=== PATIENT | female | born 1970 | race Caucasian/White ===

== ENCOUNTER 2017-05-27 08:58 | Emergency (ER) | payer OTHER ==
[~2017-05-27] VITALS: Ht 175.3 cm; Wt 111.0 kg
[~2017-05-27 08:58] MED LIST: LEVOFLOXACIN 750 MG TAB PO SCH
[2017-05-27 09:06] VITALS: TEMP 37; Ht 175.3 cm; Wt 111.0 kg
[2017-05-27] MEDS ORDERED: SODIUM CHLORIDE 0.9% 1000ML 1,000 ML IV STA (09:24)
--- NOTE | 2017-05-27 09:24 | EMERGENCY ROOM VISIT NOTE ---
History Report prepared by Emilyiberin: Ruby Mcmanus Under the Supervision of: Dr. Herman Wood D.O. First contact with patient: 09:17 Chief Complaint: ILLNESS History of Present Illness The patient is a 47 year old female who presents to the Emergency Room with complaints of dizziness. The patient is from the [place] area but is currently in [place] working. 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 The patient states that this morning she was in the shower when she started feeling shaky and dizzy. She denies any vertigo symptoms but states that she felt dizzy and lightheaded. She states she had some near syncope but mostly she noted that she was shaking in both upper extremities and felt weak in both upper extremity's. The patient denies having any headaches. She did not have any nausea or vomiting. She has not had any recent illnesses. She denies having any chest pain. The patient had surgery in October of this year for tetralogy of flow. She is not currently taking anticoagulants. The patient states that she's been compliant with her medications but left her beta pippa as well as [facility] and [place] by accident and has not taken his medications for 2 days. She's not had a fever. She denies any frequency or dysuria but states she's noticed decreased urine output. The patient states her symptoms are improved at this time. She arrived at the emergency department via ambulance. Source of History: patient Onset: earlier this morning Position: other (global) Quality: other (dizziness) Timing: other (persistent) Associated Symptoms: + weakness (in upper extremities), No fevers, No headache, No chest pain, No nausea, No vomiting, No urinary symptoms Review of Systems See HPI for pertinent positives & negatives. A total of 10 systems reviewed and were otherwise negative. Past Medical & Surgical Medical Problems: (1) Hypertension (2) Pacemaker (3) Tetralogy of Fallot Surgical Problems: (1) H/O right knee surgery (2) History of hysterectomy (3) Past history of tetralogy of Fallot, post surgical repair Social History Smoking Status: Current Every Day Smoker Smokeless Tobacco Use: No Alcohol Use: occasionally Drug Use: none Marital Status: single Housing Status: lives alone Occupation Status: employed Current/Historical Medications Scheduled Clomipramine Hcl (Anafranil), 25 MG PO HS Furosemide (Lasix), 40 MG PO DAILY Lamotrigine (Lamictal), 25 MG PO DAILY Lamotrigine (Lamictal), 100 MG PO DAILY Levofloxacin (Levaquin), 750 MG PO DAILY [place] Carbonate ([place] Carbonate), 300 MG PO TID Metoprolol Tartrate (Lopressor) (Lopressor), 50 MG PO DAILY Prazosin Hcl (Minipress), 25 MG PO DAILY Ziprasidone Hcl (Geodon), 40 MG PO BID Allergies Coded Allergies: Povidone Iodine (Unverified Allergy, Unknown, rash, 05/27/17) Physical Exam Vital Signs Date Time Temp Pulse Resp B/P (MAP) Pulse Ox O2 Delivery O2 Flow Rate FiO2 05/27/17 12:27 61 115/77 95 05/27/17 11:20 72 16 143/100 96 Room Air 05/27/17 10:20 60 16 119/92 92 Room Air 05/27/17 09:40 60 16 128/77 63 110/79 78 124/80 05/27/17 09:28 95 Room Air 05/27/17 09:13 76 05/27/17 09:06 37.0 72 18 127/72 95 Room Air Physical Exam GENERAL: Patient is awake and alert. She is mildly anxious but comfortable. EYES: The conjunctivae are clear. The pupils are round and reactive. EARS, NOSE, MOUTH AND THROAT: The nose is without any evidence of any deformity. Mucous membranes are moist tongue is midline NECK: The neck is nontender and supple. RESPIRATORY: Normal respiratory effort is noted there is no evidence of wheezing rhonchi or rales CARDIOVASCULAR: Regular rate and rhythm was noted to auscultation. A systolic murmur with a loud click was noted. GASTROINTESTINAL: The abdomen is soft. Bowel sounds are present in all quadrants. Abdomen is nontender MUSCULOSKELETAL/EXTREMITIES: There is no evidence of gross deformity full range of motion is noted in the hips and shoulders SKIN: There is no obvious evidence of any rash. There are no petechiae, pallor or cyanosis noted. No calf tenderness was elicited. NEUROLOGIC: Patient is awake alert and oriented x3 strength is symmetric patellar reflexes are 2+ bilaterally. There is no drift noted. Medical Decision & Procedures ER Provider Diagnostic Interpretation: Radiology results as stated below per my review and radiologist interpretation: CHEST ONE VIEW PORTABLE HISTORY: EVALUATE ALTERED MENTAL STATUS/WEAKNESS COMPARISON: None. FINDINGS: The heart is moderately enlarged. Left-sided dual-chamber pacemaker. Aortic valve prosthesis and poststernotomy changes. The left lung is clear. No pneumothorax. No pleural effusions. Hazy right upper lobe airspace opacity. IMPRESSION: 1. Hazy right upper lobe airspace opacity. This could represent a pneumonia or developing asymmetric pulmonary edema. Recommend follow-up to ensure resolution. 2. Moderate cardiomegaly. Electronically signed by: Mekhi Pineda M.D. 05/27/2017 9:[address] CT DOSE: 788.63 mGycm HISTORY: EVALUATE ALTERED MENTAL STATUS/WEAKNESS TECHNIQUE: Multiaxial CT images of the head were performed without the use of intravenous contrast. Automated exposure control was utilized for this study. A dose lowering technique was utilized adhering to the principles of ALARA. Comparison: None. Findings: The paranasal sinuses and mastoid air cells are clear. The calvarium and skull base are intact. The ventricles and sulci are within normal limits. There is no mass, hematoma, midline shift, or acute infarct. Impression: No acute intracranial abnormality. Electronically signed by: Mekhi Pineda M.D. 05/27/2017 10:06 AM Laboratory Results 05/27/17 09:15 Red Blood Count 4.44, Mean Corpuscular Volume 91.0, Mean Corpuscular Hemoglobin 29.5, Mean Corpuscular Hemoglobin Concent 32.4, Mean Platelet Volume 10.5, Neutrophils (%) (Auto) 70.4, Lymphocytes (%) (Auto) 19.4, Monocytes (%) (Auto) 7.7, Eosinophils (%) (Auto) 2.0, Basophils (%) (Auto) 0.3, Neutrophils # (Auto) 7.56, Lymphocytes # (Auto) 2.08, Monocytes # (Auto) 0.83, Eosinophils # (Auto) 0.21, Basophils # (Auto) 0.03 05/27/17 09:15 Test 05/27/17 09:15 White Blood Count 10.73 K/uL (4.8-10.8) Red Blood Count 4.44 M/uL (4.2-5.4) Hemoglobin 13.1 g/dL (12.0-16.0) Hematocrit 40.4 % (37-47) Mean Corpuscular Volume 91.0 fL (80-100) Mean Corpuscular Hemoglobin 29.5 pg (25-34) Mean Corpuscular Hemoglobin Concent 32.4 g/dl (32-36) Platelet Count 231 K/uL (130-400) Mean Platelet Volume 10.5 fL (7.4-10.4) Neutrophils (%) (Auto) 70.4 % Lymphocytes (%) (Auto) 19.4 % Monocytes (%) (Auto) 7.7 % Eosinophils (%) (Auto) 2.0 % Basophils (%) (Auto) 0.3 % Neutrophils # (Auto) 7.56 K/uL (1.4-6.5) Lymphocytes # (Auto) 2.08 K/uL (1.2-3.4) Monocytes # (Auto) 0.83 K/uL (0.11-0.59) Eosinophils # (Auto) 0.21 K/uL (0-0.5) Basophils # (Auto) 0.03 K/uL (0-0.2) RDW Standard Deviation 51.8 fL (36.4-46.3) RDW Coefficient of Variation 15.4 % (11.5-14.5) Immature Granulocyte % (Auto) 0.2 % Immature Granulocyte # (Auto) 0.02 K/uL (0.00-0.02) Prothrombin Time 10.2 SECONDS (9.0-12.0) Prothromb Time International Ratio 1.0 (0.9-1.1) Activated Partial Thromboplast Time 25.6 SECONDS (21.0-31.0) Partial Thromboplastin Ratio 1.0 Anion Gap 6.0 mmol/L (3-11) Est Creatinine Clear Calc Drug Dose 121.8 ml/min Estimated GFR () 109.2 Estimated GFR (Non- 94.3 BUN/Creatinine Ratio 11.1 (10-20) Calcium Level 8.8 mg/dl (8.5-10.1) Magnesium Level 2.2 mg/dl (1.8-2.4) Total Bilirubin 0.5 mg/dl (0.2-1) Direct Bilirubin mg/dl (0-0.2) Aspartate Amino Transf (AST/SGOT) 21 U/L (15-37) Alanine Aminotransferase (ALT/SGPT) 22 U/L (12-78) Alkaline Phosphatase 88 U/L (45-117) Total Creatine Kinase 187 U/L (26-192) Creatine Kinase MB 0.9 ng/ml (0.5-3.6) Creatine Kinase MB Ratio 0.5 (0-3.0) Troponin I < 0.015 ng/ml (0-0.045) Pro-B-Type Natriuretic Peptide 791 pg/ml (0-450) Total Protein 6.8 gm/dl (6.4-8.2) Albumin 3.2 gm/dl (3.4-5.0) Lipase 152 U/L (73-393) Thyroid Stimulating Hormone (TSH) 2.250 uIu/ml (0.300-4.500) Chemistry Specimen Hemolysis [place] Level 0.8 mMOL/L (0.6-1.2) Laboratory results per my review. Medications Administered Medications (Trade) Dose Ordered Sig/Yarely Route Start Time Stop Time Status Last Admin Dose Admin Sodium Chloride 1,000 ml @ 999 mls/hr Q1H1M STAT IV 05/27/17 09:24 05/27/17 10:24 DC 05/27/17 09:28 999 MLS/HR Levofloxacin (Levaquin Tab) 750 mg NOW STAT PO 05/27/17 11:04 05/27/17 11:05 DC 05/27/17 11:28 750 MG Miscellaneous Information (Nursing Verbal Med Order) 1 ea ONE ONCE N/A 05/27/17 12:30 05/27/17 12:31 DC 05/27/17 12:47 1 EA ECG Indication: weakness Rate (beats per minute): 60 Rhythm: other (ventricular paced) Findings: other (No point lay ira beats noted) Comparison ECG Date: no prior available ED Course 0920: The patient was evaluated in room B9. A complete history and physical examination were performed. 0924: NSS 1000 ml @ 999 mls/hr IV. 1104: Levaquin 750 mg PO. 1113: I reevaluated the patient. She is feeling much better. I discussed her results and discharge instructions and she verbalized complete understanding and agreement. Medical Decision Prior records/ancillary studies reviewed. Triage Nursing notes reviewed. The patient's history was concerning for dizziness and vertigo. Differential diagnosis: Etiologies such as benign positional vertigo, dehydration, hypovolemia, anemia, tumor, infection, hypoglycemia, electrolyte abnormalities, cardiac sources, intracerebral event, toxicologic, neurologic, as well as others were entertained. The patient is a 47-year-old female who presented to the emergency department with dizziness. The patient has a past medical history of tetralogy of flow repair at the beginning of the year. The patient did not complain of cough but appears to have pneumonia on chest x-ray. I discussed the patient's laboratory and radiographic studies with her. She was started on antibiotics in the emergency department. She was encouraged to rest and avoid any strenuous activity. She was also encouraged to call her family doctor to schedule a follow -up appointment or return to the emergency department immediately if symptoms change worsen or the need arises. She was also encouraged to come to our emergency department because she is not in the area and will not be able to follow-up with her family doctor as well as usual. I encouraged her to rest that she wanted to continue working at her job at this point. She was encouraged to try to limit activities otherwise. Medication Reconcilliation Current Medication List: was personally reviewed by me Blood Pressure Screening Patient's blood pressure: Normal blood pressure Blood pressure disposition: Did not require urgent referral Impression Primary Impression: Dizziness Additional Impressions: Near syncope Pneumonia Scribe Attestation The scribe's documentation has been prepared under my direction and personally reviewed by me in its entirety. I confirm that the note above accurately reflects all work, treatment, procedures, and medical decision making performed by me. Departure Information Dispostion Home / Self-Care Prescriptions Levofloxacin (Levaquin) 750 Mg Tab 750 MG PO DAILY, #7 TAB Prov: Herman Wood, DO 05/27/17 Referrals No Doctor, Assigned (PCP) Patient Instructions [facility], Pneumonia Additional Instructions Call your family to schedule a follow-up appointment. Rest and avoid any strenuous activity. Continue all medications as prescribed. Return to emergency department immediately if symptoms change worsen or the need arises. Problem Qualifiers Additional Impressions: Pneumonia Pneumonia type: due to unspecified organism Laterality: right Lung location : upper lobe of lung Qualified Codes: J18.1 - Lobar pneumonia, unspecified organism
[2017-05-27 09:28] VITALS: O2SAT 95
[2017-05-27 09:32] LABS: BASO % 0.3 %; BASO ABS # 0.03 K/uL (0-0.2); COMPLETE YES; HEMATOCRIT 40.4 % (37-47); IG% 0.2 %; LYMPH % 19.4 %; LYMPH ABS # 2.08 K/uL (1.2-3.4); MEAN CORPUSCULAR HEMOGLOBIN 29.5 pg (25-34); MEAN CORPUSCULAR HGB CONC 32.4 g/dl (32-36); MEAN PLATELET VOLUME 10.5 fL (7.4-10.4); MONO % 7.7 %; NEUT % 70.4 %; PLATELET COUNT 231 K/uL (130-400); RED BLOOD COUNT 4.44 M/uL (4.2-5.4); WHITE BLOOD COUNT 10.73 K/uL (4.8-10.8)
[2017-05-27] MEDS ORDERED: LTH300T PO (09:32)
[2017-05-27] MEDS ORDERED: ZIPR1CAP4 PO (09:32)
[2017-05-27] MEDS ORDERED: LAMO25TA PO (09:32)
[2017-05-27] MEDS ORDERED: PRAZ5CAP PO (09:32)
[2017-05-27] MEDS ORDERED: METO50TA16 PO (09:32)
[2017-05-27] MEDS ORDERED: LAMO100T16 PO (09:32)
[2017-05-27] MEDS ORDERED: CLOM25CA3 PO (09:32)
[2017-05-27] MEDS ORDERED: FRS/40 PO (09:32)
[2017-05-27 09:44] LABS: PROTHROMBIN TIME (PATIENT) 10.2 SECONDS (9.0-12.0)
--- NOTE | 2017-05-27 09:50 | DIAGNOSTIC IMAGING REPORT ---
CHEST ONE VIEW PORTABLE HISTORY: EVALUATE ALTERED MENTAL STATUS/WEAKNESS COMPARISON: None. FINDINGS: The heart is moderately enlarged. Left-sided dual-chamber pacemaker. Aortic valve prosthesis and poststernotomy changes. The left lung is clear. No pneumothorax. No pleural effusions. Hazy right upper lobe airspace opacity. IMPRESSION: 1. Hazy right upper lobe airspace opacity. This could represent a pneumonia or developing asymmetric pulmonary edema. Recommend follow-up to ensure resolution. 2. Moderate cardiomegaly. Electronically signed by: Mekhi Pineda M.D. 05/27/2017 9:49 AM Dictated Date/Time: 05/27/2017 9:46 AM
[2017-05-27 10:04] LABS: ALT/SGPT 22 U/L (12-78); BLOOD UREA NITROGEN 8 mg/dl (7-18); BUN/CREATININE RATIO 11.1 (10-20); CALCIUM 8.8 mg/dl (8.5-10.1); CARBON DIOXIDE 24 mmol/L (21-32); CHLORIDE 109 mmol/L (98-107); CREATININE 0.75 mg/dl (0.60-1.20); GLUCOSE 108 mg/dl (70-99); MAGNESIUM 2.2 mg/dl (1.8-2.4); SODIUM 139 mmol/L (136-145)
[2017-05-27 10:08] LABS: ALKALINE PHOSPHATASE 88 U/L (45-117); AST/SGOT 21 U/L (15-37); CKMB/CK RATIO 0.5 (0-3.0)
--- NOTE | 2017-05-27 10:08 | DIAGNOSTIC IMAGING REPORT ---
HEAD CT NONCONTRAST CT DOSE: 788.63 mGycm HISTORY: EVALUATE ALTERED MENTAL STATUS/WEAKNESS TECHNIQUE: Multiaxial CT images of the head were performed without the use of intravenous contrast. Automated exposure control was utilized for this study. A dose lowering technique was utilized adhering to the principles of ALARA. Comparison: None. Findings: The paranasal sinuses and mastoid air cells are clear. The calvarium and skull base are intact. The ventricles and sulci are within normal limits. There is no mass, hematoma, midline shift, or acute infarct. Impression: No acute intracranial abnormality. Electronically signed by: Mekhi Pineda M.D. 05/27/2017 10:06 AM Dictated Date/Time: 05/27/2017 10:03 AM
[2017-05-27] MEDS ORDERED: LEVOFLOXACIN 250 MG TAB PO STA (11:04)
[2017-05-27] MEDS ORDERED: LEVO1TAB35 PO (11:07)
[2017-05-27 12:27] VITALS: BP 115/77; PULSE 61; O2SAT 95
[2017-05-27] MEDS ORDERED: NURSING VERBAL MED ORDER ONE (12:30)
== END 2017-05-27 12:29 | disposition home or self-care (01) ==
LOC: EDBD 08:58 → C.EDB 09:01
DX: R42 Dizziness and giddiness (principal); R55 Syncope and collapse; J18.1 Lobar pneumonia, unspecified organism; I10 Essential (primary) hypertension; Z95.0 Presence of cardiac pacemaker; Q21.3 Tetralogy of Fallot; F17.210 Nicotine dependence, cigarettes, uncomplicated; Z79.899 Other long term (current) drug therapy